=== PATIENT | female | born 1980 | race Caucasian/White ===

== ENCOUNTER 2023-05-01 08:36 | Outpatient (CLI) | payer MEDICAID, SELFPAY | END 2023-05-01 08:37 | disposition home or self-care (01) | PROVIDERS: PCP Family Medicine; Visit Provider Physician Assistant | DX: Z12.4 Encounter for screening for malignant neoplasm of cervix (principal); Z31.69 Encounter for other general counseling and advice on procreation; Z30.9 Encounter for contraceptive management, unspecified | CPT/HCPCS: 83001; 83520; 84443 ==